=== PATIENT | female | born 1950 | race Hispanic/Latino ===

== ENCOUNTER 2019-04-13 07:03 | Day surgery (SDC) | payer OTHER ==
[2019-04-08 08:53] VITALS: BP 126/58
[2019-04-08 09:03] LABS: APPEARANCE,URINE Clear (CLEAR); BASOPHILS % (AUTO) 0.8 % (0.0-5.0); BILIRUBIN,URINE Negative (NEGATIVE); COLOR,URINE Yellow (YELLOW); EOSINOPHILS % (AUTO) 2.5 % (0.0-8.0); GLUCOSE, URINE (UA) Negative (NEGATIVE); HEMATOCRIT 33.9 % (36-48); KETONES,URINE Negative (NEGATIVE); LEUKOCYTE ESTERASE ,URINE Negative (NEGATIVE); LYMPHOCYTES % (AUTO) 20.7 % (21.0-51.0); MEAN CORPUSCULAR HEMOGLOBIN 31.9 pg (27.0-33.0); MEAN CORPUSCULAR HGB CONC 32.9 g/dL (32.0-36.0); MEAN CORPUSCULAR VOLUME 96.9 fL (79-99); MONOCYTES % (AUTO) 5.8 % (3.0-13.0); NEUTROPHILS % (AUTO) 70.2 % (40.0-77.0); NITRATE,URINE Negative (NEGATIVE); OCCULT BLOOD,URINE Negative (NEGATIVE); PLATELET COUNT (AUTO) 135 K/uL (130-400); PROTEIN,URINE Negative (NEGATIVE); RED CELL DISTRIBUTION WIDTH 13.7 % (11.0-15.5); UROBILINOGEN,URINE 0.2 mg/dL (0.2-1.0)
[2019-04-08 09:13] LABS: CREATININE 1.3 mg/dL (0.5-1.5); POTASSIUM 4.4 mmol/L (3.5-5.1)
[2019-04-08 09:15] LABS: INR 0.97 (0.85-1.15); PARTIAL THROMBOPLASTIN TIME 31.5 SEC (26.3-35.5); PROTHROMBIN TIME 10.2 SEC (9.6-11.6)
--- NOTE | 2019-04-10 16:18 | NUR ---
LABS INFORMED JAZZ BARILLAS OF ABNORMAL BUN/CREA. NO ORDERS RECEIVED. PROCEED WITH PLANNED PROCEDURE
[~2019-04-13] VITALS: Ht 149.9 cm; Wt 100.3 kg
[2019-04-13] VITALS (10 sets, daily range): BP systolic 94–133; BP diastolic 42–60
[~2019-04-13 07:03] MED LIST: AMIO100T4 PO; GLIM1TAB2 PO; HYDR-3420 PO; HYDR12.530 PO; LEVO25TA54 PO; LOSA50TA64 PO; PANT40TA25 PO; RIVA20TA PO; SIMV40TA59 PO; SODIUM CHLORIDE 0.9% 500ML 500 ML IV SCH
[2019-04-13] MEDS ORDERED: SODIUM CHLORIDE 0.9% 1000ML 1,000 ML IV ONE (07:24)
[2019-04-13] MEDS ORDERED: HEPARIN SODIUM 1000UNIT/ML 10ML VIAL ONE (10:42)
[2019-04-13] MEDS ORDERED: LIDOCAINE HCL 2% 20ML ONE (10:43)
[2019-04-13] MEDS ORDERED: NITROGLYCERIN 5 MG/ML 10 ML VIAL IV ONE (10:43)
[2019-04-13] MEDS ORDERED: IODIXANOL 320 MG/ML 100 ML VIAL ONE (10:43)
[2019-04-13] MEDS ORDERED: SODIUM BICARB 50MEQ 50ML VIAL ONE (10:43)
[2019-04-13] MEDS ORDERED: THROMBIN-JMI 5000 UNIT/VIAL TP ONE (10:58)
[2019-04-13] MEDS ORDERED: ISOPROTERENOL HCL 0.2 MG/ML AMP/VIAL/BAG ONE (11:04)
[2019-04-13] MEDS ORDERED: EPTIFIBATIDE 2 MG/ML 10 ML VIAL IVP ONE (11:05)
[2019-04-13] MEDS ORDERED: DiphenhydrAMINE HCL 50 MG/ML VIAL ONE (11:59)
[2019-04-13] MEDS ORDERED: LABETALOL HCL 5 MG/ML 20ML VIAL IV ONE (12:23)
[2019-04-13] MEDS ORDERED: SODIUM CHLORIDE 0.9% 1000ML 1,000 ML IV SCH (12:42)
[2019-04-13] MEDS ORDERED: DEXTROSE 50%-WATER 50 ML DISP.SYRIN IV PRN (12:45)
[2019-04-13] MEDS ORDERED: GLUCAGON 1MG KIT 1 MG ML IM PRN (12:45)
--- NOTE | 2019-04-13 13:53 | NUR ---
CONSULT DR. MAR CAME TO SPEAK WITH PATIENT FOR STENTING TO THE RIGHT CAROTID. PT WILL BE SCHEDULED SOMETIME NEXT WEEK. PT ABLE TO EAT PER DR. MAR. PT TO GO HOME AFTER BEDREST.
--- NOTE | 2019-04-13 15:45 | NUR ---
HANDOFF REPORT RECEIVED FROM DORA SALAZAR RN USING SBAR. PATIENT AAOX3, RESPIRATIONS UNLABORED, VITAL SIGNS STABLE. PATIENT DENIES ANY PAIN AT THIS TIME. LEFT FEMORAL SITE WITH DRESSING DRY AND INTACT, SITE IS SOFT AND NONTENDER. BILATERAL PEDAL PULSES STRONG. SIDE RAILS UP X2, CALL LIU WITHIN REACH, AND GRANDSON AT BEDSIDE.
--- NOTE | 2019-04-13 15:45 | NUR ---
HANDOFF REPORT GIVEN AT BESIDE FOR PATIENT TO SOTO FABIAN RN. PT SITE IS DRY AND INTACT WITH NO BLEEDING, HEMATOMA, OR PAIN.
[2019-04-13] MEDS ORDERED: INSULIN HUMULIN R 100 UNIT/ML 3ML SQ SCH (16:30)
--- NOTE | 2019-04-13 17:00 | NUR ---
DISCHARGE INSTRUCTIONS DISCHARGE INSTRUCTIONS PROVIDED TO PATIENT AND GRANDSON, PROVIDED FOLLOW UP APPOINTMENTS AND INSTRUCTIONS ON FEMORAL SITE CARE AND SIGHS/SYMPTOMS TO MONITOR FOR AND REPORT. PATIENT'S GRANDSON VERBALIZED UNDERSTANDING. ANSWERED ALL QUESTIONS/CONCERNS.
--- NOTE | 2019-04-13 17:45 | NUR ---
DISCHARGED HOME PATIENT DISCHARGED FROM HOSPITAL, TAKEN TO PRIVATE VEHICLE VIA WHEELCHAIR BY NURSE. PATIENT DRIVEN BY BLANCA.
== END 2019-04-13 17:45 ==
LOC: DAH 07:03
PROVIDERS: ATTEND Internal Medicine Cardiovascular Disease
DX: I65.23 Occlusion and stenosis of bilateral carotid arteries (principal); E78.5 Hyperlipidemia, unspecified; I10 Essential (primary) hypertension; I48.0 Paroxysmal atrial fibrillation; E66.9 Obesity, unspecified; E03.9 Hypothyroidism, unspecified; Z79.84 Long term (current) use of oral hypoglycemic drugs; Z79.899 Other long term (current) drug therapy; Z79.01 Long term (current) use of anticoagulants; Z68.41 Body mass index [BMI] 40.0-44.9, adult; Z90.49 Acquired absence of other specified parts of digestive tract; Z98.890 Other specified postprocedural states; Z95.0 Presence of cardiac pacemaker; Z82.49 Family history of ischemic heart disease and other diseases of the circulatory system; Z83.3 Family history of diabetes mellitus
CPT/HCPCS: 36223; 36415; 71045; 80048; 81003; 82948 ×2; 85025; 85610; 85730; 93005; A4606; C1760; C1894; J1200; J1644; J3490 ×4; J7030; Q9967; J1327

== ENCOUNTER 2019-07-10 09:00 | Inpatient (IN) | payer OTHER ==
[~2019-07-10] VITALS: Ht 147.3 cm; Wt 9.4 kg
[~2019-07-10 09:00] MED LIST changes: -GLIM1TAB2 PO; +GLIM1TAB3 PO; -LOSA50TA64 PO; -SIMV40TA59 PO; -SODIUM CHLORIDE 0.9% 500ML 500 ML IV SCH
[2019-07-10 10:53] LABS: BASOPHILS % (AUTO) 1.1 % (0.0-5.0); EOSINOPHILS % (AUTO) 2.8 % (0.0-8.0); HEMATOCRIT 32.9 % (36-48); LYMPHOCYTES % (AUTO) 29.6 % (21.0-51.0); MEAN CORPUSCULAR HEMOGLOBIN 32.2 pg (27.0-33.0); MEAN CORPUSCULAR HGB CONC 33.2 g/dL (32.0-36.0); MEAN CORPUSCULAR VOLUME 96.7 fL (79-99); NEUTROPHILS % (AUTO) 60.5 % (40.0-77.0); PLATELET COUNT (AUTO) 133 K/uL (130-400); RED CELL DISTRIBUTION WIDTH 13.7 % (11.0-15.5); WHITE BLOOD COUNT (AUTO) 4.5 K/uL (4.8-10.8)
[2019-07-10 10:57] LABS: APPEARANCE,URINE Clear (CLEAR); BILIRUBIN,URINE Negative (NEGATIVE); COLOR,URINE Yellow (YELLOW); GLUCOSE, URINE (UA) Negative (NEGATIVE); KETONES,URINE Negative (NEGATIVE); LEUKOCYTE ESTERASE ,URINE Negative (NEGATIVE); NITRATE,URINE Negative (NEGATIVE); OCCULT BLOOD,URINE Negative (NEGATIVE); PROTEIN,URINE Negative (NEGATIVE)
[2019-07-10 11:01] LABS: CREATININE 1.6 mg/dL (0.5-1.5); POTASSIUM 4.9 mmol/L (3.5-5.1)
[2019-07-10 11:29] VITALS: BP 171/61
[2019-07-10 11:46] LABS: INR 1.35 (0.85-1.15); PARTIAL THROMBOPLASTIN TIME 45.3 SEC (26.3-35.5)
--- NOTE | 2019-07-10 16:00 | NUR ---
RE: ASPIRIN INFORMED JAZZ CHAN THAT PATIENT HAD NOT TAKEN ASPIRIN IN THREE WEEKS AND just started taking it yesterday. PER DUSTIN, RINA TO PROCEED WITH PROCEDURE BECAUSE PATIENT IS ON PLAVIX.
[2019-07-10] MEDS ORDERED: OLME20TA22 PO (16:13)
[2019-07-10] MEDS ORDERED: SIMV-46 PO (16:13)
[2019-07-10] MEDS ORDERED: ASPI-555 PO (16:13)
[2019-07-10] MEDS ORDERED: CLOP75TA32 PO (16:13)
[2019-07-13] MEDS: SODIUM CHLORIDE 0.9% 1000ML 1,000 ML IV SCH ×2 (06:00→21:45)
--- NOTE | 2019-07-13 11:26 | NUR ---
ABNORMAL LABS ABNORMAL LABS REPORTED TO JAZZ MONZON; H/H 10.9/32.9, PT 14.0, INR 1.35, PTT 45.3, CREAT 1.6. ORDERS TO GIVE NS AT 100 ML/HR UPON ARRIVAL TO DAY PATIENT UNTIL PT GOES TO PROCEDURE.
--- NOTE | 2019-07-13 11:53 | NUR ---
EKG EKG REPORTED TO DR. ANDERSON, NO FURTHER ORDERS GIVEN, MAY PROCEED WITH PLANNED PROCEDURE.
[2019-07-14] VITALS (29 sets, daily range): BP systolic 114–152; BP diastolic 43–67
[2019-07-14] MEDS ORDERED: ONDANSETRON HCL 4 MG/2 ML VIAL ONE (06:36)
[2019-07-14] MEDS ORDERED: PROPOFOL 10 MG/ML 20ML VIAL IV ONE ×2 (06:36→09:10)
[2019-07-14] MEDS ORDERED: MIDAZOLAM HCL 1 MG/ML 2ML VIAL ONE (06:36)
[2019-07-14] MEDS ORDERED: ROCURONIUM 10MG/1ML SYR 10 MG/ML ML ONE (06:36)
[2019-07-14] MEDS ORDERED: PHENYLEPHRINE HCL 10 MG/ML 1ML VIAL IV ONE (06:36)
[2019-07-14] MEDS ORDERED: LIDOCAINE PF 2% 5ML ABBOJECT ONE (06:36)
[2019-07-14] MEDS ORDERED: NOREPINEPHRINE BITARTRATE 1 MG/1 ML ML IV ONE ×2 (06:36→21:11)
[2019-07-14] MEDS ORDERED: FENTANYL CITRATE PF 50 MCG/1 ML 2ML VIAL ONE (06:37)
[2019-07-14] MEDS ORDERED: HEPARIN SODIUM 1000UNIT/ML 10ML VIAL ONE (07:12)
[2019-07-14] MEDS ORDERED: IODIXANOL 320 MG/ML 100 ML VIAL ONE (07:13)
[2019-07-14] MEDS ORDERED: CEFAZOLIN SODIUM 1 GM VIAL ONE (07:30)
[2019-07-14] MEDS: SODIUM CHLORIDE 0.9% 1000ML 1,000 ML IV SCH ×4 (07:45→20:35)
[2019-07-14] MEDS ORDERED: ATROPINE SULFATE 0.1 MG/ML 10 ML SYG IVP ONE (08:21)
[2019-07-14] MEDS ORDERED: NEOSTIGMINE 5MG/5ML SYR IV ONE (08:57)
[2019-07-14] MEDS ORDERED: GLYCOPYRROLATE 0.2 MG/ML 5 ML VIAL ONE (08:57)
[2019-07-14] MEDS ORDERED: NITROGLYCERIN 50 MG/D5% WATER 250 BOT IV PRN (09:15)
[2019-07-14] MEDS ORDERED: SUGAMMADEX SODIUM 200 MG/2 ML VIAL IV SCH (09:26)
[2019-07-14] MEDS: HYDROCHLOROTHIAZIDE 25 MG TABLET PO SCH (09:29)
[2019-07-14] MEDS: LOSARTAN 100 MG TABLET PO SCH (09:30)
[2019-07-14] MEDS: GLIMEPIRIDE 0.5 MG PO SCH (09:40)
[2019-07-14] MEDS: HYDRALAZINE HCL 10 MG TABLET PO SCH ×2 (13:31→20:05)
[2019-07-14] MEDS: ACETAMINOPHEN-CODEINE 300/30MG TAB PO PRN ×2 (13:55→19:18)
[2019-07-14] MEDS: NOREPINEPHRINE 4MG/NS 250ML 250 ML IV PRN ×2 (15:38→21:17)
[2019-07-14] MEDS ORDERED: CEFAZOLIN SODIUM 1 GM VIAL IVP SCH (17:45)
[2019-07-14] MEDS: SIMVASTATIN 20 MG TABLET PO SCH (20:08)
[2019-07-14] MEDS ORDERED: SODIUM CHLORIDE 0.9% 250 ML IV ONE (21:12)
[2019-07-15] VITALS (23 sets, daily range): BP systolic 94–153; BP diastolic 35–82
[2019-07-15] MEDS ORDERED: SODIUM CHLORIDE 0.9% 250 ML IV ONE (01:23)
[2019-07-15] MEDS ORDERED: NOREPINEPHRINE BITARTRATE 1 MG/1 ML ML IV ONE (01:23)
[2019-07-15] MEDS: NOREPINEPHRINE 4MG/NS 250ML 250 ML IV PRN (02:44)
[2019-07-15] MEDS: SODIUM CHLORIDE 0.9% 1000ML 1,000 ML IV SCH ×3 (04:22→21:14)
[2019-07-15 04:26] LABS: HEMATOCRIT 29.5 % (36-48); MEAN CORPUSCULAR HEMOGLOBIN 32.4 pg (27.0-33.0); MEAN CORPUSCULAR VOLUME 98.4 fL (79-99); PLATELET COUNT (AUTO) 119 K/uL (130-400); RED CELL DISTRIBUTION WIDTH 14.1 % (11.0-15.5); WHITE BLOOD COUNT (AUTO) 7.7 K/uL (4.8-10.8)
[2019-07-15 04:39] LABS: CREATININE 1.8 mg/dL (0.5-1.5); POTASSIUM 4.6 mmol/L (3.5-5.1)
[2019-07-15] MEDS ORDERED: PHARMACY COMMUNICATION MISC SCH (06:30)
[2019-07-15] MEDS: ACETAMINOPHEN-CODEINE 300/30MG TAB PO PRN ×2 (06:45→13:32)
--- NOTE | 2019-07-15 07:00 | NUR ---
ASSESSMENT ASSUMED CARE. AA&oX3. IN BED. NO DISTRESS NOTED. UNLABORED RESPIRATIONS. RIGHT NECK WITH DRESSING DRY & INTACT. BRUISING NOTED AROUND SURGICAL SITE. C/O PAINFUL TO SWALLOW. NO S/S OF ASPIRATION NOTED. WILL NOTIFY MD. ASSISTED TO CARDIAC BEDSIDE CHAIR. STRONG, STEADY GAIT NOTED. DENIED DIZZINESS. TOLERATED WELL.SINUS RHYTHM HR 70. NURSE IN ROOM. WILL CONTINUE TO MONITOR.
[2019-07-15] MEDS: LOSARTAN 100 MG TABLET PO SCH (09:00)
[2019-07-15] MEDS: GLIMEPIRIDE 0.5 MG PO SCH (09:00)
[2019-07-15] MEDS ORDERED: SODIUM CHLORIDE 0.9% 1000ML 1,000 ML IV ONE (09:11)
--- NOTE | 2019-07-15 09:15 | NUR ---
DR CLEMENTS HERE TO SEE PT UPDATED. HE REVIEWED PT'S LABS, V/S, MEDICATIONS, RIGHT NECK SURGICAL SITE. PT C/O PAIN, SWELLING , AND DIFFICULTY SWALLOWING. HE ORDERED TO NOTIFY DR MAR AND HAVE HIM COME SEE PT.
[2019-07-15] MEDS: HYDRALAZINE HCL 10 MG TABLET PO SCH ×3 (10:19→21:15)
[2019-07-15] MEDS: LEVOTHYROXINE 25 MCG TABLET PO SCH (10:33)
[2019-07-15] MEDS: CLOPIDOGREL BISULFATE 75 MG TAB PO SCH (10:33)
[2019-07-15] MEDS: ASPIRIN 81 MG EC TAB PO SCH (10:33)
[2019-07-15] MEDS: HYDROCHLOROTHIAZIDE 25 MG TABLET PO SCH (10:33)
[2019-07-15] MEDS: PANTOPRAZOLE SODIUM 40 MG TABLET.DR PO SCH (10:33)
[2019-07-15] MEDS: AMIODARONE HCL 200 MG TABLET PO SCH (10:38)
--- NOTE | 2019-07-15 11:26 | NUR ---
RECEIVED ORDER FOR US FROM DR MAR ULTRASOUND OF NECK TO LOOK FOR BLOOD CLOT ORDERED.
--- NOTE | 2019-07-15 14:40 | NUR ---
CHRIS PLAN VISITED WITH PATIENT. PATIENT STILL IN CVR SLEEPING. JEREMY WILL CONTINUE TO FOLLOW. Addendum: 07/15/19 at 1441 by DOUGLAS ALFORD RN CM Amended: Links added.
--- NOTE | 2019-07-15 16:08 | NUR ---
dr obrien here to see pt he assessed rt neck area, surgical site. ordered for ice packs to the area and ice pops for dinner. downgraded to tele.
--- NOTE | 2019-07-15 17:24 | NUR ---
transferred to pccu room #201 via cardiac recliner. aa&ox3. on room air. no distress noted upon transfer. all belonings taken with patient including her cell phone and jewel staker. settled in room. call light in hand. instructed to call for assistance. verbalized understanding. tele pack in place.
[2019-07-15] MEDS: SIMVASTATIN 20 MG TABLET PO SCH (21:15)
[2019-07-16 03:31] VITALS: BP 121/57
[2019-07-16] MEDS: SODIUM CHLORIDE 0.9% 1000ML 1,000 ML IV SCH ×2 (04:28→06:35)
[2019-07-16 04:44] LABS: HEMATOCRIT 26.6 % (36-48); MEAN CORPUSCULAR HEMOGLOBIN 32.4 pg (27.0-33.0); MEAN CORPUSCULAR HGB CONC 33.1 g/dL (32.0-36.0); MEAN CORPUSCULAR VOLUME 97.9 fL (79-99); PLATELET COUNT (AUTO) 96 K/uL (130-400); RED BLOOD CELL COUNT(AUTO) 2.71 MIL/uL (4.00-5.50); RED CELL DISTRIBUTION WIDTH 13.7 % (11.0-15.5); WHITE BLOOD COUNT (AUTO) 4.3 K/uL (4.8-10.8)
[2019-07-16 04:52] LABS: CREATININE 1.4 mg/dL (0.5-1.5); POTASSIUM 5.1 mmol/L (3.5-5.1)
[2019-07-16] MEDS: PANTOPRAZOLE SODIUM 40 MG TABLET.DR PO SCH (06:30)
[2019-07-16 07:00] VITALS: BP 130/64
[2019-07-16] MEDS: ACETAMINOPHEN-CODEINE 300/30MG TAB PO PRN (07:52)
[2019-07-16] MEDS: HYDRALAZINE HCL 10 MG TABLET PO SCH ×3 (09:00→20:43)
[2019-07-16] MEDS ORDERED: EPOETIN ALFA 10,000 UNIT/ML VIAL SQ SCH (09:00)
[2019-07-16] MEDS: GLIMEPIRIDE 0.5 MG PO SCH (09:00)
[2019-07-16] MEDS ORDERED: IRON SUCROSE COMPLEX 100 MG in SODIUM CHLORIDE 0.9% 50 ML IV SCH (09:00)
[2019-07-16] MEDS ORDERED: COMPOUND IV MISC 1 EACH IVSOLN MISC PRN (09:30)
[2019-07-16] MEDS: AMIODARONE HCL 200 MG TABLET PO SCH (09:50)
[2019-07-16] MEDS: ASPIRIN 81 MG EC TAB PO SCH (09:50)
[2019-07-16] MEDS: HYDROCHLOROTHIAZIDE 25 MG TABLET PO SCH (09:50)
[2019-07-16] MEDS: LOSARTAN 100 MG TABLET PO SCH (09:51)
[2019-07-16] MEDS: LEVOTHYROXINE 25 MCG TABLET PO SCH (09:51)
[2019-07-16] MEDS: CLOPIDOGREL BISULFATE 75 MG TAB PO SCH (09:51)
[2019-07-16 10:17] LABS: % IRON SATURATION 17.1 % (22-44)
[2019-07-16 11:00] VITALS: BP 123/55
--- NOTE | 2019-07-16 11:11 | NUR ---
DC PLAN VISITED WITH PATIENT. PATIENT LIVES WITH ALONE. INDEPENDENT ABLE TO PERFORM ADL'S. PROVIDER 2 HRS. PATIENT HAS NO DME'S. FEELS SAFE TO RETURN HOME. SAYS DAUGHTER WILL HELP ON DISCHARGE AND AT HOME. Addendum: 07/16/19 at 1112 by DOUGLAS ALFORD RN CM Amended: Links added.
[2019-07-16 15:00] VITALS: BP 134/66
[2019-07-16 19:30] VITALS: BP 109/39
[2019-07-16] MEDS: SIMVASTATIN 20 MG TABLET PO SCH (20:42)
== END 2019-07-16 21:15 | disposition home or self-care (01) | DRG 35 ==
LOC: EDSTATUS 09:00 → DAHIP 07-14 05:37 → 2CV 07-14 09:54 → 2AH 07-15 17:27
PROVIDERS: ADMIT Internal Medicine; ATTEND Internal Medicine
PROC: 037K0DZ Dilation of Right Internal Carotid Artery with Intraluminal Device, Open Approach (ICD-10-PCS; principal; 2019-07-14)
PROC: B313YZZ Fluoroscopy of Right Common Carotid Artery using Other Contrast (ICD-10-PCS; 2019-07-14)
DX: I65.21 Occlusion and stenosis of right carotid artery (principal); Z68.41 Body mass index [BMI] 40.0-44.9, adult; I25.10 Atherosclerotic heart disease of native coronary artery without angina pectoris; D50.9 Iron deficiency anemia, unspecified; E03.9 Hypothyroidism, unspecified; I10 Essential (primary) hypertension; I48.0 Paroxysmal atrial fibrillation; E78.00 Pure hypercholesterolemia, unspecified; G47.30 Sleep apnea, unspecified; E66.01 Morbid (severe) obesity due to excess calories; E11.9 Type 2 diabetes mellitus without complications; E78.5 Hyperlipidemia, unspecified; Z79.899 Other long term (current) drug therapy; Z95.0 Presence of cardiac pacemaker; S10.83XA Contusion of other specified part of neck, initial encounter
CPT/HCPCS: 36415; 37215; 71045; 76536; 80048; 81003; 82948; 83540; 83550; 83735; 85025; 85027; 85347; 85610; 85730; 86850; 86900; 86901; 86922; 93005; C1725; C1769; G0378; J0461; J0690; J0885; J1644; J1756; J2001; J2250; J2370; J2405; J2704; J2710; J3010; J3490; J7030; Q9967